=== PATIENT | female | born 1965 | race Caucasian/White ===

== ENCOUNTER 2016-11-15 12:02 | Outpatient (CLI) | payer OTHER ==
--- NOTE | 2016-11-15 12:44 | DIAGNOSTIC IMAGING REPORT ---
PROCEDURE: XR LUMBAR SPINE 5 VIEWS INDICATION: LUMBAR RADICULOPATHY TECHNIQUE: Five views. COMPARISON: None. FINDINGS: Spondylosis L3-4 L4-5 and L5-S1. EMILY this line there is a posterior osteophytic ridge as well as a vacuum disc. Small osteophytes are seen at L3 and L4. IMPRESSION: 1. Spondylosis L3-S1. Worse at L5-S1.
--- NOTE | 2016-11-15 12:45 | DIAGNOSTIC IMAGING REPORT ---
PROCEDURE: XR SHOULDER 2 OR MORE VW-LEFT INDICATION: LUMBAR RADICULOPATHY TECHNIQUE: Three views. COMPARISON: None. FINDINGS: Osseous structures and joint spaces are normal. IMPRESSION: 1. Normal left shoulder.
== END 2016-11-15 23:00 ==
LOC: XR SRH 12:02
DX: M67.912 Unspecified disorder of synovium and tendon, left shoulder (principal); M54.16 Radiculopathy, lumbar region; M47.817 Spondylosis without myelopathy or radiculopathy, lumbosacral region